=== PATIENT | female | born 1980 | race Hispanic/Latino ===

== ENCOUNTER 2021-02-20 01:35 | Emergency (ER) | payer OTHER ==
[~2021-02-20] VITALS: Ht 157.5 cm; Wt 63.5 kg
[2021-02-20 02:11] LABS: BASOPHILS % (AUTO) 0.3 % (0.0-5.0); HEMATOCRIT 39.2 % (36-48); LYMPHOCYTES % (AUTO) 34.6 % (21.0-51.0); MEAN CORPUSCULAR HEMOGLOBIN 30.2 pg (27.0-33.0); MEAN CORPUSCULAR HGB CONC 33.4 g/dL (32.0-36.0); MEAN CORPUSCULAR VOLUME 90.3 fL (79-99); MONOCYTES % (AUTO) 5.8 % (3.0-13.0); PLATELET COUNT (AUTO) 378 K/uL (130-400); RED BLOOD CELL COUNT(AUTO) 4.34 MIL/uL (4.00-5.50); RED CELL DISTRIBUTION WIDTH 14.2 % (11.0-15.5); WHITE BLOOD COUNT (AUTO) 13.7 K/uL (4.8-10.8)
[2021-02-20 02:19] LABS: CREATININE 0.8 mg/dL (0.5-1.5); POTASSIUM 3.3 mmol/L (3.5-5.1)
[2021-02-20 02:24] LABS: ALBUMIN 3.9 g/dL (3.5-5.0); BILIRUBIN,TOTAL 0.3 mg/dL (0.2-1.0); TOTAL PROTEIN, SERUM 7.7 g/dL (6.0-8.3)
[2021-02-20] MEDS ORDERED: 0.9%NACL 1000ML 1,000 ML IV SCH (02:30)
[2021-02-20] MEDS ORDERED: ONDANSETRON 4MG INJ IVP ONE ×3 (02:30→05:01)
[2021-02-20] MEDS ORDERED: DiphenhydrAMINE HCL 50 MG/ML VIAL IV ONE (04:30)
[2021-02-20] MEDS ORDERED: KETOROLAC 30MG VIAL (30MG/ML) IV ONE (04:30)
[2021-02-20] MEDS ORDERED: 0.9%NACL 1000ML 1,000 ML IV ONE (04:30)
[2021-02-20] MEDS ORDERED: METOCLOPRAMIDE 10 MG/2 ML VIAL IVP ONE (04:30)
[2021-02-20] MEDS ORDERED: ONDA4TAB10 PO (05:40)
[2021-02-20] MEDS ORDERED: METO-296 PO (05:40)
[2021-02-20 06:05] VITALS: BP 126/64
== END 2021-02-20 06:05 | disposition home or self-care (01) ==
LOC: EDH 01:35
DX: E86.9 Volume depletion, unspecified (principal); R51.9 Headache, unspecified; R11.2 Nausea with vomiting, unspecified; Z79.1 Long term (current) use of non-steroidal anti-inflammatories (NSAID); Z79.899 Other long term (current) drug therapy
CPT/HCPCS: 36415; 80053; 81025; 85025; 96361; 96374; 96375; 96376; 99284; J1200; J1885; J2405 ×2; J2765; J7030 ×2